=== PATIENT | male | born 2005 | race Caucasian/White ===

== ENCOUNTER 2023-02-16 22:34 | Emergency (ER) | payer OTHER, SELFPAY ==
[2023-02-16 22:41] VITALS: BP 129/76; PULSE 82; RESP 16; TEMP 36.6; O2SAT 100
--- NOTE | 2023-02-16 23:32 | ED.GENADULT ---
HPI - General Adult General Chief complaint: Allergic Reaction Stated complaint: possible allergic reaction Time Seen by Provider: 02/16/23 22:56 Source: patient Mode of arrival: ambulatory Limitations: no limitations History of Present Illness HPI narrative: This is a 17-year-old male who presents to the ED for chief complaint of a left-sided facial rash onset 3 days ago. Reports he has symptoms of sore throat, cough as well for the past couple of days. Reports he was traveling from [place] recently but denies any known sick contacts. Denies any known alert contacts. Denies any new soaps, lotions or new medications. Reports the rash is itchy and not painful. He has since noticed that he has had spread of the rash in the upper thorax and neck. Denies fevers, chills, chest pain, shortness of breath, abdominal pain, nausea, vomiting. No recent antibiotics. Related Data Allergies Allergy/AdvReac Type Severity Reaction Status Date / Time No Known Allergies Allergy Unverified 09/07/11 20:15 Review of Systems Review of Systems: All systems as dictated in HPI Exam Narrative: GENERAL: Well-appearing, well-nourished, and in no acute distress. HEAD: Normocephalic, atraumatic. EYES: PERRLA and EOMI. ENT: Mild posterior oropharynx erythema. Floor the mouth intact. No trismus or drooling. Nares clear, no rhinorrhea or epistaxis. Mucous membranes moist. Oropharynx without tonsillar hypertrophy exudate or other lesions. NECK: Supple. No adenopathy or masses. CHEST: No respiratory distress. Clear to auscultation. No wheezes rales or rhonchi. 100% on room air. HEART: Regular rate and rhythm. No murmur heard. Normal peripheral pulses. ABDOMEN: Soft, nontender, nondistended, normal active bowel sounds. MSK: Normal range of motion. No edema. SKIN: Maculopapular rash to the left periorbit and left maxillary area. There is small amount of rash to the right side of the neck and upper chest. NEURO: Alert and oriented x3. No focal deficits. PSYCH: Normal mood and affect. Course Vital Signs Vital signs: Vital Signs Temperature 97.9 F 02/16/23 22:41 Pulse Rate 82 02/16/23 22:41 Respiratory Rate 16 02/16/23 22:41 Blood Pressure 129/76 02/16/23 22:41 Pulse Oximetry 100 02/16/23 22:41 Temperature 97.9 F 02/16/23 22:41 Pulse Rate 82 02/16/23 22:41 Respiratory Rate 16 02/16/23 22:41 Blood Pressure 129/76 02/16/23 22:41 Pulse Oximetry 100 02/16/23 22:41 Medical Decision Making MDM Narrative Medical decision making narrative: This is a 17-year-old male who presents to the ED with chief complaint of rash and URI symptoms. He feels that they are separate issues. Vitals are normal. Exam shows maculopapular rash to the left side of the face and right side of the neck. There is no mucosal involvement of the rash. Exam is otherwise intact. The rash appears to be more of an allergic or contact dermatitis but unclear what the etiology is at this point. Other symptoms most likely related to viral syndrome. He is recently traveling from out of town. Dexamethasone was given and prescription for triamcinolone cream given. Viral swabs and strep swabs negative. Pt will be discharged in stable condition. Return precautions given and supportive measures discussed. Pt is understanding and agreeable with plan for discharge and follow-up with PCP. Vital Signs Vital Signs: Vital Signs Temperature 97.9 F 02/16/23 22:41 Pulse Rate 82 02/16/23 22:41 Respiratory Rate 16 02/16/23 22:41 Blood Pressure 129/76 02/16/23 22:41 Pulse Oximetry 100 02/16/23 22:41 Temperature 97.9 F 02/16/23 22:41 Pulse Rate 82 02/16/23 22:41 Respiratory Rate 16 02/16/23 22:41 Blood Pressure 129/76 02/16/23 22:41 Pulse Oximetry 100 02/16/23 22:41 Lab Data Labs: Lab Results 02/16/23 Range/Units 23:19 Influenza A (RT-PCR) Negative (Negative) Influenza B (RT-PCR
[2023-02-16 23:47] LABS: Strep Group A RT-PCR NOT DETECTED (Negative)
[2023-02-16 23:58] LABS: Influenza A QL RT-PCR Negative (Negative); Influenza B QL RT-PCR Negative (Negative); RSV RNA, RT-PCR Negative (Negative); SARS-CoV-2 RNA PCR Negative (Negative)
== END 2023-02-17 00:13 | disposition home or self-care (01) ==
PROVIDERS: Emergency Provider Physician Assistant; PCP Pediatrics
DX: L30.9 Dermatitis, unspecified (principal); J06.9 Acute upper respiratory infection, unspecified; Z20.822 Contact with and (suspected) exposure to COVID-19
CPT/HCPCS: 87637; 87651; 96372; 99283; J1100